=== PATIENT | female | born 1965 | race Caucasian/White ===

== ENCOUNTER 2020-01-01 07:20 | Inpatient (IN) | payer OTHER ==
[~2020-01-01] VITALS: Ht 167.6 cm; Wt 123.6 kg
[~2020-01-01 07:20] MED LIST: ALBUAER3 IN; ALOG1TAB2 PO; AMLO10TA13 PO; ATOR80TA PO; CONJ.6252 PO; ENAL20TA8 PO; GABA800T97 PO; GLIM4TAB42 PO; HYDR-531 PO; INSDRIP SC; INSU1INJ19 SC; METF-372 PO; METO25TA5 PO; MICO2CRE49 VA; REPA2TAB8 PO
[2020-01-01] MEDS ORDERED: ACETAMINOPHEN IV 1000 MG/100ML (10MG/ML) IV ONE (07:45)
[2020-01-01] MEDS ORDERED: VANCOMYCIN 1GM/250ML 250 ML IV ONE (07:45)
[2020-01-01] MEDS ORDERED: PREGABALIN CAPSULE 75 MG CAP PO ONE (07:45)
[2020-01-01] MEDS ORDERED: CELECOXIB 100 MG CAP PO ONE (07:45)
[2020-01-01] MEDS ORDERED: MORPHINE SULF(PF) 0.5MG/ML 10ML VIAL ONE (07:46)
[2020-01-01] MEDS ORDERED: fentaNYL CITRATE 100 MCG/2 ML VL ONE ×2 (07:46→12:38)
[2020-01-01] MEDS ORDERED: SUCCINYLCHOLINE CHLORIDE 20 MG/ML 10ML VIAL IV ONE (07:46)
[2020-01-01] MEDS ORDERED: SODIUM CHLORIDE LOCK 10 ML ONE (07:47)
[2020-01-01] MEDS ORDERED: PROPOFOL 10 MG/ML 20 ML IV ONE ×2 (07:47→13:23)
[2020-01-01] MEDS ORDERED: EPINEPHrine HCL 1 MG/1 ML AMP ONE (07:47)
[2020-01-01] MEDS ORDERED: ONDANSETRON HCL 4 MG/2 ML VIAL ONE (07:47)
[2020-01-01] MEDS ORDERED: MIDAZOLAM HCL 1MG/1ML-2 ML VIAL ONE ×3 (07:47→12:05)
[2020-01-01] MEDS ORDERED: CELECOXIB 100 MG CAP ONE (07:56)
[2020-01-01] MEDS ORDERED: PREGABALIN CAPSULE 75 MG CAP ONE (07:56)
[2020-01-01] MEDS ORDERED: ACETAMINOPHEN IV 100 ML IV ONE (07:59)
[2020-01-01] MEDS ORDERED: TRANEXAMIC ACID 20 ML ONE (08:23)
[2020-01-01] MEDS ORDERED: BUPIVACAINE W/ EPINEPH 0.25% INJ 50ML MDV ONE (08:23)
[2020-01-01] MEDS ORDERED: KETOROLAC TROMETH 30 MG/ML 1ML VIAL ONE (08:25)
[2020-01-01] MEDS ORDERED: VANCOMYCIN HCL 1000 MG VL ONE ×2 (08:25)
[2020-01-01] MEDS ORDERED: fentaNYL CITRATE 10 ML ONE (08:29)
[2020-01-01] MEDS ORDERED: HYDROmorphone HCL 2 MG/ML VL ONE (08:29)
[2020-01-01] MEDS ORDERED: ROCURONIUM 10MG/ML 10ML VIAL IV ONE (08:44)
[2020-01-01] MEDS ORDERED: CLINDAMYCIN 900MG IV 50 ML IV ONE (08:58)
[2020-01-01] MEDS ORDERED: ACCU-CHEK COMFORT CURVE STRIP VI ONE (10:15)
[2020-01-01] MEDS ORDERED: fentaNYL CITRATE 100 MCG/2 ML VL IV PRN (10:15)
[2020-01-01] MEDS ORDERED: MORPHINE SULFATE 4 MG/ML SYR/VIAL IV PRN (10:15)
[2020-01-01] MEDS ORDERED: METOCLOPRAMIDE HCL 5MG/ml INJ 2ml VIAL IV PRN (10:15)
[2020-01-01] MEDS ORDERED: GLYCOPYRROLATE 0.2 MG/ML 1ML VIAL ONE (10:31)
[2020-01-01] MEDS ORDERED: NEOSTIGMINE 1 MG/ML INJ (10mg/10ML VIAL) ONE (10:31)
[2020-01-01] MEDS: LACTATED RINGER'S 1,000 ML IV SCH ×2 (11:06→21:06)
[2020-01-01] MEDS ORDERED: MORPHINE SULF INJ 2 MG/ML SYRINGE 1ML IV PRN (11:15)
[2020-01-01] MEDS ORDERED: NITROGLYCERIN 0.4 MG SL TAB SL PRN (11:15)
[2020-01-01] MEDS: HYDROmorphone HCL 2 MG/ML VL IV PRN ×5 (11:43→22:28)
[2020-01-01] MEDS ORDERED: KETAMINE HCL 10 ML ONE (12:38)
[2020-01-01 13:00] VITALS: BP 151/69
--- NOTE | 2020-01-01 13:02 | NUR ---
Pt Arrived on Unit Pt arrived on unit from PACU. Pt is a/ox4 with no s/s of distress or SOB. Pt is currently laying in bed with dressing and wound vac present to L knee. Elevated L knee on pillows and SCDs were applied. Pt is currently on 3l via NC PRN. Safety measures initiated with call light within reach, bed in lowest position and side rails up. Will continue to monitor for changes.
[2020-01-01 13:36] VITALS: BP 135/76
--- NOTE | 2020-01-01 14:58 | NUR ---
CPM Pt is set up on CPM. Tolerating treatment well. Will continue to monitor. Addendum: 01/01/20 at 1747 by KIMBERLY MAHAJAN RN RN CMP removed. Pt tolerated treatment well. Will continue to monitor.
--- NOTE | 2020-01-01 15:58 | NUR ---
Resuming Home Medications Pt is inquiring about resuming home medications. Paged CLIN NURSE SPEC Jatinder for possible orders of resuming home medications. Awaiting call back.
--- NOTE | 2020-01-01 16:01 | NUR ---
Ambulation Pt was able to ambulate to bedside commode without difficulty. Pt tolerated placing weight on L knee. Will continue to monitor and encourage ambulation.
[2020-01-01 17:00] VITALS: BP 124/61
--- NOTE | 2020-01-01 19:35 | NUR ---
Opening Shift Note Assumed care of patient, awake and alert. No S/S of distress/SOB or pain. Patient is S/P left knee arthroplasty, dressing to left knee dry and intact, wound vac in place. Instructed on POC and to call for assist PRN, will continue to monitor for changes Q1hr and PRN.
--- NOTE | 2020-01-01 20:00 | NUR ---
Patient refused CPM at this time, verbalizing she wants to rest for tonight and will try to use CPM in the morning. Patient able to ambulate to the toilet to void with moderate assistance. Care continued.
[2020-01-01 21:53] VITALS: BP 137/71
[2020-01-01] MEDS: VANCOMYCIN 1GM/250ML 250 ML IV SCH (21:58)
[2020-01-01] MEDS: DOCUSATE SOD 100 MG CAP PO SCH (22:00)
[2020-01-02] MEDS: HYDROmorphone HCL 2 MG/ML VL IV PRN ×3 (03:58→16:07)
[2020-01-02] MEDS: ONDANSETRON HCL 4 MG/2 ML VIAL IV PRN (04:19)
[2020-01-02 05:21] VITALS: BP 132/75
[2020-01-02 05:46] LABS: Basophils # (auto) 0 10 ^3/uL (0-0.2); Basophils % (auto) 0.3 % (0.0-2.0); Eosinophils # (auto) 0.1 10 ^3/uL (0-0.8); Eosinophils % (auto) 0.9 % (0.0-7.0); Hematocrit 35.7 % (36.0-46.0); Hemoglobin 11.5 g/dL (12.2-16.2); Lymphocytes # (auto) 0.7 10 ^3/uL (0.4-5.4); Lymphocytes % (auto) 8.1 % (10.0-50.0); Mean Corpuscular Hemoglobin 31.7 pg (28.0-32.0); Mean Corpuscular Hgb Conc. 32.2 g/dL (32.0-36.0); Mean Corpuscular Volume 98.4 fL (80.0-100.0); Monocytes # (auto) 1.1 10 ^3/uL (0-1.3); Monocytes % (auto) 11.5 % (0.0-12.0); Neutrophils # (auto) 7.2 10 ^3/uL (1.6-8.6); Neutrophils % (auto) 79.2 % (37.0-80.0); Platelet Count (auto) 277 10^3/uL (140-450); Red Blood Cells 3.63 10^6/uL (4.0-5.20); Red Cell Distribution Width 15.3 % (11.8-14.3); White Blood Cell 9.1 10^3/uL (4.4-10.8)
[2020-01-02 06:22] LABS: Calcium 8.7 mg/dL (8.5-10.1); Potassium 4.2 mmol/L (3.5-5.1)
[2020-01-02 06:28] LABS: Albumin 3.3 g/dL (3.4-5.0); BUN/Creatinine Ratio 19.1; Bilirubin, Total 0.6 mg/dL (0.2-1.0); Total Protein 6.3 g/dL (6.4-8.2)
[2020-01-02] MEDS: LACTATED RINGER'S 1,000 ML IV SCH ×2 (06:55→18:02)
--- NOTE | 2020-01-02 07:30 | NUR ---
Opening Shift Note Assuming care of patient at this time. Patient is awake and alert. Patient denies pain. Patient shows no signs or symptoms of distress or shortness of breath. Bed is locked and lowered with side rails up x2. Instructed patient on the plan of care for today and to call for assistance as needed. Call light within reach. Will continue to round hourly and as needed.
--- NOTE | 2020-01-02 07:30 | NUR ---
No significant change in patient status, dressing to left knee still dry and intact, attached to wound vac. All needs attended to. No complains at this time. Report given to oncoming RN.
[2020-01-02 09:00] VITALS: BP 132/64
[2020-01-02] MEDS: VANCOMYCIN 1GM/250ML 250 ML IV SCH ×2 (09:55→22:13)
[2020-01-02] MEDS: DOCUSATE SOD 100 MG CAP PO SCH ×2 (09:55→22:21)
[2020-01-02] MEDS: ENOXAPARIN SOD 40 MG/0.4 ML SYRINGE SC SCH (09:56)
--- NOTE | 2020-01-02 11:00 | NUR ---
Wound Vac With assistance from Elle winding machine operator, wound vac canister was changed. Canister was full of dark, red sanguineous drainage. Patient tolerated well.
[2020-01-02 13:00] VITALS: BP 137/68
[2020-01-02] MEDS ORDERED: amLODIPine BESYLATE 5 MG TAB PO ONE (16:00)
[2020-01-02] MEDS ORDERED: ALBUTEROL SULF 2.5 MG/0.5ML(0.5%) NEB SOLN NEB PRN (16:00)
[2020-01-02] MEDS ORDERED: DEXTROSE (50%) 50ML SYRG IV PRN (16:00)
[2020-01-02 16:53] VITALS: BP 156/73
[2020-01-02] MEDS: ACCU-CHEK COMFORT CURVE STRIP VI SCH ×2 (17:15→22:37)
[2020-01-02] MEDS: HYDROcodone-ACET 5/325MG TAB PO PRN (18:03)
[2020-01-02] MEDS: InsuLIN REG 1unit/0.01ml Soln (100units/ml) SC SCH ×2 (18:05→22:37)
--- NOTE | 2020-01-02 19:27 | NUR ---
Closing Shift Note Patient resting in bed. No distress noted. Report given. Will endorse [facility] to [facility] shift lead RN.
--- NOTE | 2020-01-02 19:30 | NUR ---
Opening Shift Note Assumed care of patient, awake and alert. A&Ox4. Patient sitting up in bed. No S/S of distress/SOB or pain. Dressing dry and intact, wound vac draining. Safety measures maintained by keeping the bed locked in lowest position, 2 side rails up, personal items and call light within reach. Instructed on POC and to call for assist PRN, will continue to monitor for changes Q1hr and PRN.
[2020-01-02 20:29] LABS: Urine Bacteria MOD /hpf (None Seen); Urine Blood Negative /uL (Negative); Urine Specific Gravity 1.009 (1.001-1.035); Urine WBC 2 /hpf (0 - 5)
[2020-01-02] MEDS: ATORVASTATIN 20 MG TAB PO SCH (22:20)
[2020-01-02] MEDS: GABAPENTIN 400 MG CAP PO SCH (22:20)
[2020-01-02] MEDS: METOPROLOL TARTRATE 25 MG TAB PO SCH (22:21)
[2020-01-02 23:30] VITALS: BP 141/87
[2020-01-03] MEDS: HYDROmorphone HCL 2 MG/ML VL IV PRN ×2 (00:37→12:29)
[2020-01-03] MEDS: LACTATED RINGER'S 1,000 ML IV SCH ×3 (03:06→23:06)
[2020-01-03 04:20] VITALS: BP 141/87
[2020-01-03 05:30] VITALS: BP 125/63
[2020-01-03 05:36] LABS: Basophils # (auto) 0 10 ^3/uL (0-0.2); Basophils % (auto) 0.3 % (0.0-2.0); Eosinophils # (auto) 0 10 ^3/uL (0-0.8); Eosinophils % (auto) 0.4 % (0.0-7.0); Lymphocytes # (auto) 1.1 10 ^3/uL (0.4-5.4); Lymphocytes % (auto) 9.7 % (10.0-50.0); Mean Corpuscular Hemoglobin 32.3 pg (28.0-32.0); Mean Corpuscular Hgb Conc. 33.4 g/dL (32.0-36.0); Mean Corpuscular Volume 96.7 fL (80.0-100.0); Monocytes # (auto) 1.2 10 ^3/uL (0-1.3); Monocytes % (auto) 11.1 % (0.0-12.0); Neutrophils # (auto) 8.7 10 ^3/uL (1.6-8.6); Neutrophils % (auto) 78.5 % (37.0-80.0); Nucleated Red Blood Cells % 0.1 %; Platelet Count (auto) 274 10^3/uL (140-450); Red Blood Cells 3.41 10^6/uL (4.0-5.20)
[2020-01-03 05:54] LABS: Potassium 3.9 mmol/L (3.5-5.1)
[2020-01-03 05:58] LABS: BUN/Creatinine Ratio 13.8
[2020-01-03] MEDS: GABAPENTIN 400 MG CAP PO SCH ×3 (06:35→21:55)
[2020-01-03] MEDS: InsuLIN REG 1unit/0.01ml Soln (100units/ml) SC SCH ×4 (06:37→21:47)
[2020-01-03] MEDS: ACCU-CHEK COMFORT CURVE STRIP VI SCH ×4 (06:46→21:47)
--- NOTE | 2020-01-03 07:15 | NUR ---
Opening shift note Assumed care patient AOx4. Patient complains of pain 5/10 to right knee s/p total knee arthroplasty on 01/01/2020. Patient does not want pain medication at this time. No s/s of distress noted at this time. Bed in low position, locked, call light within reach. Will continue care.
[2020-01-03 09:00] VITALS: BP 146/71
[2020-01-03] MEDS: ENOXAPARIN SOD 40 MG/0.4 ML SYRINGE SC SCH (09:42)
[2020-01-03] MEDS: ACETAMINOPHEN 325 MG TAB PO PRN ×2 (09:42→20:39)
[2020-01-03] MEDS: amLODIPine BESYLATE 5 MG TAB PO SCH (09:43)
[2020-01-03] MEDS: METOPROLOL TARTRATE 25 MG TAB PO SCH ×2 (09:44→21:56)
[2020-01-03] MEDS: VANCOMYCIN 1GM/250ML 250 ML IV SCH ×2 (09:44→21:57)
[2020-01-03] MEDS: DOCUSATE SOD 100 MG CAP PO SCH ×2 (09:44→21:56)
--- NOTE | 2020-01-03 11:00 | NUR ---
Respiratory note: PT ASSESSED FOR PRN MN TX. HR 120, RR 20, POX 95% ON RA, BS ARE DIMINISHED. NO SOB OR DISTRESS NOTED. PT WAS NOTIFY TO HAVE RN PAGED IF MN TX WAS NEEDED.
[2020-01-03 13:00] VITALS: BP 110/66
--- NOTE | 2020-01-03 13:00 | NUR ---
Physical therapy Patient ambulating with physical therapy with assistance of a walker. Patient tolerating ambulation.
--- NOTE | 2020-01-03 16:25 | NUR ---
D/C Planning Regarding social service consult for bedside commode and walker. Faxed clinical information to patient health plan [employer] who will assist with DME. Per Crystal with [facility], SG will deliver walker to bedside and bedside commode to home upon discharge day.
[2020-01-03 17:00] VITALS: BP 135/60
--- NOTE | 2020-01-03 17:00 | NUR ---
IV removal IV to right forearm DC'd with clean sterile technique after redness and irritation noted to site, catheter fully intact. Pressure dressing applied to site. Patient tolerated well. IV insertion IV access obtained, via clean sterile technique by inserting 22 gauge catheter at left forearm after 2 attempts. IV secured properly. No trauma to site. Patient tolerated well.
--- NOTE | 2020-01-03 18:59 | NUR ---
RT NOTE PT WAS SEEN BY RT FOR PRN HHN TX ASSESSMENT. PT STATES NO TREATMENT NEEDED AT THIS TIME. HR 126, RR 20, BS CLEAR/DIM, POX 93% ON ROOM AIR AND APPEARS TO TOLERATE WELL. CONT ORDERED Addendum: 01/03/20 at 1917 by Maura Brower RT Amended: Links added.
--- NOTE | 2020-01-03 19:30 | NUR ---
Opening Shift Note Assumed care of patient, awake and alert. A&Ox4. Patient laying prone in bed. No S/S of distress/SOB or pain. Safety measures maintained by keeping the bed locked in lowest position, personal items and call light within reach. Wound vac draining. Instructed on POC and to call for assist PRN, will continue to monitor for changes Q1hr and PRN.
[2020-01-03] MEDS: ATORVASTATIN 20 MG TAB PO SCH (21:56)
[2020-01-03 22:01] VITALS: BP 134/64
[2020-01-04 05:15] VITALS: BP 127/67
[2020-01-04 05:58] LABS: Basophils # (auto) 0 10 ^3/uL (0-0.2); Basophils % (auto) 0.4 % (0.0-2.0); Eosinophils # (auto) 0.1 10 ^3/uL (0-0.8); Eosinophils % (auto) 0.5 % (0.0-7.0); Hematocrit 32.8 % (36.0-46.0); Hemoglobin 10.9 g/dL (12.2-16.2); Lymphocytes # (auto) 1.1 10 ^3/uL (0.4-5.4); Lymphocytes % (auto) 10.6 % (10.0-50.0); Mean Corpuscular Hemoglobin 32.2 pg (28.0-32.0); Mean Corpuscular Hgb Conc. 33.2 g/dL (32.0-36.0); Mean Corpuscular Volume 96.8 fL (80.0-100.0); Monocytes # (auto) 1.1 10 ^3/uL (0-1.3); Monocytes % (auto) 10.4 % (0.0-12.0); Neutrophils # (auto) 7.9 10 ^3/uL (1.6-8.6); Neutrophils % (auto) 78.1 % (37.0-80.0); Nucleated Red Blood Cells % 0.1 %; Platelet Count (auto) 265 10^3/uL (140-450); Red Blood Cells 3.39 10^6/uL (4.0-5.20); Red Cell Distribution Width 14.9 % (11.8-14.3); White Blood Cell 10.2 10^3/uL (4.4-10.8)
[2020-01-04 06:17] LABS: Albumin 2.4 g/dL (3.4-5.0); Calcium 8.6 mg/dL (8.5-10.1); Potassium 3.8 mmol/L (3.5-5.1)
[2020-01-04 06:21] LABS: BUN/Creatinine Ratio 14.7; Bilirubin, Total 0.9 mg/dL (0.2-1.0); Total Protein 6.4 g/dL (6.4-8.2)
[2020-01-04] MEDS: GABAPENTIN 400 MG CAP PO SCH ×3 (06:37→21:01)
[2020-01-04] MEDS: HYDROmorphone HCL 2 MG/ML VL IV PRN ×3 (06:38→23:20)
[2020-01-04] MEDS: ACCU-CHEK COMFORT CURVE STRIP VI SCH ×4 (06:49→21:25)
[2020-01-04] MEDS: InsuLIN REG 1unit/0.01ml Soln (100units/ml) SC SCH ×4 (06:49→22:15)
[2020-01-04 08:10] VITALS: BP 128/61
[2020-01-04 09:00] VITALS: BP 128/61
[2020-01-04] MEDS: LACTATED RINGER'S 1,000 ML IV SCH ×2 (09:06→13:06)
--- NOTE | 2020-01-04 09:38 | NUR ---
Dr. Herrera came over. MD is aware of patient's elevated temperature. Follow up with Physical Therapy. Patient sleeps most of the time.
--- NOTE | 2020-01-04 11:13 | NUR ---
Nutrition Assessment Notes Please refer to link for full assessment notes. Est Energy needs: 0740-3020 kcals (12-15 kcal/kgBW) Est Protein needs: 118-148 gms/day (2.0-2.5 gm/kgIBW) d/t pt adiposity Will continue to monitor and reassess prn. Addendum: 01/04/20 at [address] Amended: Links added.
[2020-01-04] MEDS: ENOXAPARIN SOD 40 MG/0.4 ML SYRINGE SC SCH (11:15)
[2020-01-04] MEDS: VANCOMYCIN 1GM/250ML 250 ML IV SCH (11:15)
[2020-01-04] MEDS: ACETAMINOPHEN 325 MG TAB PO PRN ×2 (11:20→21:00)
[2020-01-04] MEDS: DOCUSATE SOD 100 MG CAP PO SCH ×2 (11:20→21:01)
[2020-01-04] MEDS: amLODIPine BESYLATE 5 MG TAB PO SCH (11:20)
--- NOTE | 2020-01-04 11:20 | NUR ---
Temp = 101.2F. Tylenol PO given as ordered.
[2020-01-04] MEDS: METOPROLOL TARTRATE 25 MG TAB PO SCH ×2 (11:21→20:13)
--- NOTE | 2020-01-04 12:26 | NUR ---
Temp = 100.9 F. Ice pack given.
[2020-01-04 13:00] VITALS: BP 108/53
--- NOTE | 2020-01-04 13:47 | NUR ---
assessment Patient is a 54 year old female who is alert and oriented. Patients cognitive abilities are intact. Prior to admission patient lived home alone and functioned independently. Patient informed me she is able to care for her own ADLs. Per patient she will return home to her prior living arrangements post discharge and her friend Dequan will transport her home. Patient informed me she was admitted for knee replacement. Patient has a fww for home use. Per patient [facility] already set her up with [facility] for PT with [place]. A bedside commode has been ordered. Patients PCP is Dr Mcleod. I informed patient she has a right to speak to a manager social media regarding all care. I informed patient she has a right to participate in any and all discharge planning. Patient does not have a POA and advanced directive. I have offered patient information on POA and advanced directives. I informed the patient the advantages and benefits of having an Advanced Directive. Patient verbalized understanding and agreed to discharge plan. Addendum: 01/04/20 at 1353 by Marie D EJESUS Amended: Links added.
--- NOTE | 2020-01-04 15:30 | NUR ---
Patient had a bowel movement. Large, soft yellow stools noted on the bedside commode. Assisted the patient back to bed. Cleaned the bedside commode.
[2020-01-04] MEDS: HYDROcodone-ACET 5/325MG TAB PO PRN (16:58)
[2020-01-04 17:00] VITALS: BP 137/56
--- NOTE | 2020-01-04 18:20 | NUR ---
Patient wet the bed. Cleaned the patient, changed the gown, linen, chucks for comfort.
--- NOTE | 2020-01-04 19:52 | NUR ---
Opening Shift Note Assumed care of patient, awake and alert. No S/S of distress/SOB or pain. Instructed on POC and to call for assist PRN, will continue to monitor for changes Q1hr and PRN.Left knee dressing dry and intact, with small pocket drain in placed.
--- NOTE | 2020-01-04 20:18 | NUR ---
Called/pageIshaan Brumfield N.p. called re:heart rate is high 169,174,173 . Waiting for call back. Continue care.
[2020-01-04] MEDS: ATORVASTATIN 20 MG TAB PO SCH (21:01)
[2020-01-04] MEDS ORDERED: dilTIAZem 25 MG/5 ML VIAL IV ONE (21:15)
[2020-01-04] MEDS ORDERED: SODIUM CHLORIDE 0.9% 500 ML IV ONE (21:15)
--- NOTE | 2020-01-04 21:15 | NUR ---
returned call Ishaan Tompkins returned call, updated on patient status and reason for call, orders received of N.S.500 cc x one, and Diltiazem 10mg.i.v.p. x one if heart rate did not go down. Continue care.
[2020-01-04 22:00] VITALS: BP 105/77
--- NOTE | 2020-01-04 23:20 | NUR ---
Given a lot of ice chips to sucks on ,cooling measure.
--- NOTE | 2020-01-04 23:30 | NUR ---
IV insertion IV access obtained, via clean sterile technique by inserting 22 gauge catheter at left hand after attempt. IV secured properly. No trauma to site. Patient tolerated procedure well.
[2020-01-05] VITALS (7 sets, daily range): BP systolic 113–149; BP diastolic 63–79
--- NOTE | 2020-01-05 01:05 | NUR ---
returned call Ishaan Tompkins returned call, updated on patient status and reason for call heart rate is still above 130-140- orders received of labetalol 10mg.i.v.p. x one Continue care.
[2020-01-05] MEDS ORDERED: LABETALOL HCL 5 MG/ML 4ML SYRINGE IV ONE (01:15)
--- NOTE | 2020-01-05 02:43 | NUR ---
Called/paged Ishaan Tompkins called re:heart rate still high 168, 167,sinus tach. . Waiting for call back. Continue care.
[2020-01-05] MEDS ORDERED: dilTIAZem 125mg/125ml BAG KIT 100 ML IV SCH (03:06)
--- NOTE | 2020-01-05 03:10 | NUR ---
returned call Ishaan Torres returned call, updated on patient status and reason for call, said he will check the chart. Continue care.
--- NOTE | 2020-01-05 03:12 | NUR ---
Heart rate going down to 108, 107.
[2020-01-05] MEDS ORDERED: SODIUM CHLORIDE 0.9% 500 ML IV ONE (03:15)
[2020-01-05] MEDS ORDERED: SODIUM CHLORIDE 0.9% 1,000 ML IV SCH (03:15)
--- NOTE | 2020-01-05 03:20 | NUR ---
Called Ishaan Tompkins for the heart rate is good now 108, 111, 109, and said do the i.v.fluid 85cc/hour and the bolus of 500cc x one except the diltiazem drip.
[2020-01-05] MEDS ORDERED: levoFLOXacin 500MG 100 ML IV SCH (04:00)
[2020-01-05] MEDS: GABAPENTIN 400 MG CAP PO SCH ×3 (05:17→21:12)
[2020-01-05] MEDS: HYDROmorphone HCL 2 MG/ML VL IV PRN ×3 (05:27→20:53)
[2020-01-05] MEDS: ACCU-CHEK COMFORT CURVE STRIP VI SCH ×4 (06:26→21:41)
[2020-01-05] MEDS: InsuLIN REG 1unit/0.01ml Soln (100units/ml) SC SCH ×4 (06:27→21:42)
[2020-01-05 06:29] LABS: Basophils # (auto) 0 10 ^3/uL (0-0.2); Basophils % (auto) 0.4 % (0.0-2.0); Eosinophils # (auto) 0.1 10 ^3/uL (0-0.8); Eosinophils % (auto) 0.7 % (0.0-7.0); Hematocrit 30.9 % (36.0-46.0); Hemoglobin 10.1 g/dL (12.2-16.2); Lymphocytes # (auto) 0.9 10 ^3/uL (0.4-5.4); Lymphocytes % (auto) 8.9 % (10.0-50.0); Mean Corpuscular Hemoglobin 31.5 pg (28.0-32.0); Mean Corpuscular Hgb Conc. 32.5 g/dL (32.0-36.0); Mean Corpuscular Volume 96.8 fL (80.0-100.0); Monocytes % (auto) 9.5 % (0.0-12.0); Neutrophils # (auto) 8.1 10 ^3/uL (1.6-8.6); Neutrophils % (auto) 80.5 % (37.0-80.0); Platelet Count (auto) 310 10^3/uL (140-450); Red Blood Cells 3.19 10^6/uL (4.0-5.20); Red Cell Distribution Width 14.9 % (11.8-14.3)
[2020-01-05 06:46] LABS: Lactic Acid w/Reflex 2.1 mmol/L (0.4-2.0)
[2020-01-05 06:50] LABS: Albumin 2.5 g/dL (3.4-5.0); Calcium 8.4 mg/dL (8.5-10.1); Potassium 3.6 mmol/L (3.5-5.1)
[2020-01-05 06:53] LABS: Bilirubin, Total 0.8 mg/dL (0.2-1.0); Total Protein 6.8 g/dL (6.4-8.2)
--- NOTE | 2020-01-05 07:15 | NUR ---
Care report given to Ysabel Piedra, patient is resting no distress.
--- NOTE | 2020-01-05 07:30 | NUR ---
Opening Shift Note Assumed care of patient, awake, alert, and oriented. No S/S of distress/SOB or pain. Bed in lowest/locked position, bed rails up x2, call light within reach. Wound vac to left knee. Instructed on POC and to call for assist PRN. Will continue to monitor for changes Q1hr and PRN.
--- NOTE | 2020-01-05 08:15 | NUR ---
PT. ASSESSED FOR PRN. MN. TX., NO RESP. DISTRESS OR SOB NOTED AT THIS TIME. PT. IS EATING BREAKFAST AND DOESN'T WANT A TX. AT THIS TIME. ED=510,RR=20, SP02 93% ON 3LPM. NO TX. GIVEN, INSTRUCTED PT. TO CALL IF NEEDED.
--- NOTE | 2020-01-05 08:30 | NUR ---
TEMP PATIENT TEMP 101.5. MEDICATED PER MD ORDERS. WILL CONTINUE TO MONITOR
[2020-01-05] MEDS: DOCUSATE SOD 100 MG CAP PO SCH ×2 (08:39→21:11)
[2020-01-05] MEDS: ENOXAPARIN SOD 40 MG/0.4 ML SYRINGE SC SCH (08:40)
[2020-01-05] MEDS: METOPROLOL TARTRATE 25 MG TAB PO SCH ×2 (08:41→21:13)
[2020-01-05] MEDS: ACETAMINOPHEN 325 MG TAB PO PRN ×2 (08:41→16:44)
[2020-01-05] MEDS: amLODIPine BESYLATE 5 MG TAB PO SCH (08:42)
--- NOTE | 2020-01-05 09:40 | NUR ---
TEMP REASSESSMENT REASSESSED TEMP 100.5. COOLING MEASURES PLACED. WILL CONTINUE TO MONITOR
--- NOTE | 2020-01-05 09:47 | NUR ---
re-assessment Per consult dc planning. Patient to return home on discharge. Bedside commode and fww has been delivered. Home health has been set up by [facility] with [facility]. Addendum: 01/05/20 at 0950 by Marie Soto Amended: Links added.
--- NOTE | 2020-01-05 11:05 | NUR ---
MD ROUNDS DR OGLESBY AT BEDSIDE DISCUSSING POC WITH PATIENT. NEW ORDERS RECEIVED/WILL CARRY OUT. WILL CONTINUE TO MONITOR
--- NOTE | 2020-01-05 11:42 | NUR ---
LAB URINE SENT TO LAB PER MD ORDERS
--- NOTE | 2020-01-05 12:20 | NUR ---
MD ROUNDS DR WORKMAN AT BEDSIDE DISCUSSING POC WITH PATIENT. NEW ORDERS RECEIVED/WILL CARRY OUT. WILL CONTINUE TO MONITOR
[2020-01-05 12:45] LABS: Urine Bacteria FEW /hpf (None Seen); Urine Blood Negative /uL (Negative); Urine Mucus FEW (None Seen); Urine Specific Gravity 1.022 (1.001-1.035); Urine WBC 14 /hpf (0 - 5)
[2020-01-05] MEDS ORDERED: levoFLOXacin 250 MG TAB PO ONE (14:45)
[2020-01-05] MEDS ORDERED: FUROSEMIDE 40 MG/4 ML VIAL IV ONE (14:45)
--- NOTE | 2020-01-05 20:00 | NUR ---
Opening Shift Note Assumed care of patient, awake and alert. No S/S of distress/SOB or pain. Instructed on POC and to call for assist PRN, will continue to monitor for changes Q1hr and PRN.Dressing in the left knee dry white Gauze covered with Opsite dry and intact.
[2020-01-05] MEDS: ATORVASTATIN 20 MG TAB PO SCH (21:12)
--- NOTE | 2020-01-05 21:35 | NUR ---
Cooling measures done, and ice chips to sucks on.
[2020-01-06] MEDS: HYDROcodone-ACET 5/325MG TAB PO PRN ×5 (00:44→22:41)
[2020-01-06] MEDS: HYDROmorphone HCL 2 MG/ML VL IV PRN ×4 (01:19→16:11)
[2020-01-06] MEDS: ACETAMINOPHEN 325 MG TAB PO PRN (03:58)
[2020-01-06 04:37] VITALS: BP 127/59
[2020-01-06 05:40] LABS: Hematocrit 28.8 % (36.0-46.0); Hemoglobin 9.5 g/dL (12.2-16.2); Mean Corpuscular Hemoglobin 31.9 pg (28.0-32.0); Mean Corpuscular Hgb Conc. 33.1 g/dL (32.0-36.0); Mean Corpuscular Volume 96.5 fL (80.0-100.0); Platelet Count (auto) 322 10^3/uL (140-450); Red Blood Cells 2.99 10^6/uL (4.0-5.20); Red Cell Distribution Width 14.6 % (11.8-14.3); White Blood Cell 8.4 10^3/uL (4.4-10.8)
[2020-01-06] MEDS: GABAPENTIN 400 MG CAP PO SCH (05:45)
[2020-01-06 05:58] LABS: BUN/Creatinine Ratio 11.3; Calcium 8.2 mg/dL (8.5-10.1); Magnesium 2.2 mg/dL (1.6-2.6); Potassium 3.6 mmol/L (3.5-5.1)
[2020-01-06 06:02] LABS: Band Neutrophils % (manual) 0; Basophils % (manual) 0 (0.0-2.0); Blast Cells 0; Eosinophils % (manual) 0 (0-7); Myelocytes % 0; Promyelocytes % 0; Reactive Lymphocytes 0
[2020-01-06] MEDS: ACCU-CHEK COMFORT CURVE STRIP VI SCH ×4 (06:29→21:33)
[2020-01-06] MEDS: InsuLIN REG 1unit/0.01ml Soln (100units/ml) SC SCH ×4 (06:31→21:44)
--- NOTE | 2020-01-06 07:17 | NUR ---
Report given to Ysabel Hernandez, patient is resting no distress, dressing dry and intact in the left knee.
--- NOTE | 2020-01-06 07:21 | NUR ---
Opening Shift Note Assumed care of patient, awake, alert, and oriented. No S/S of distress/SOB or pain. Bed in lowest/locked position, bed rails up x2, call light within reach. Instructed on POC and to call for assist PRN. Will continue to monitor for changes Q1hr and PRN.
[2020-01-06] MEDS: levoFLOXacin 500 MG TAB PO SCH (07:45)
[2020-01-06] MEDS: ENOXAPARIN SOD 40 MG/0.4 ML SYRINGE SC SCH (07:45)
[2020-01-06] MEDS: METOPROLOL TARTRATE 25 MG TAB PO SCH ×2 (07:46→21:33)
[2020-01-06] MEDS: amLODIPine BESYLATE 5 MG TAB PO SCH (07:46)
[2020-01-06] MEDS: DOCUSATE SOD 100 MG CAP PO SCH ×2 (07:47→21:32)
--- NOTE | 2020-01-06 07:50 | NUR ---
PRN MN TX NOT INDICATED AT THIS TIME. PT IS AWAKE, ALERT AND ORIENTED. PT DENIES SOB OR ANY OTHER RESPIRATORY DISTRESS. PT ON 3L/MIN VIA NC 95% O2 SATS, HR 98 BPM, RR20 BPM, BS ARE BIBASILARLY DIMINISHED AND CLEAR TO THE UPPER AW TO AUSCULTATION. RESPIRATION IS EVEN AND NON LABORED. PT INSTRUCTED TO CALL IF MN TX IS INDICATED PT VERBALIZED UNDERSTANDING. WILL CONTINUE TO MONITOR PT.
--- NOTE | 2020-01-06 08:30 | NUR ---
MD ROUNDS DR OGLESBY AT BEDSIDE DISCUSSING POC WITH PATIENT. NEW ORDERS RECEIVED/WILL CARRY OUT. WILL CONTINUE TO MONITOR
[2020-01-06 09:00] VITALS: BP 127/66
--- NOTE | 2020-01-06 10:19 | NUR ---
IV insertion IV access obtained, via clean sterile technique by inserting 20 gauge catheter at RAC after 1 attempt. IV secured properly. No trauma to site. Patient tolerated well.
[2020-01-06 10:48] LABS: Lymphocytes % (manual) 9 (10.0-50.0); Metamyelocytes % 1; Monocytes % (manual) 17 (0-12)
[2020-01-06] MEDS ORDERED: IOHEXOL 350 MG/ML 100ML IJ ONE (11:07)
[2020-01-06 13:00] VITALS: BP 136/77
--- NOTE | 2020-01-06 13:46 | NUR ---
SHOWER PATIENT ASSISTED TO SHOWER WITH MODERATE ASSIST. PATIENT SHOWERED, FULL LINEN CHANGE. PATIENT ASSISTED BACK TO BED WITH MODERATE ASSIST. PATIENT TOLERATED WELL
[2020-01-06] MEDS: GABAPENTIN 100 MG CAP PO SCH ×2 (16:11→21:33)
[2020-01-06 16:45] VITALS: BP 129/67
[2020-01-06] MEDS: FUROSEMIDE 40 MG/4 ML VIAL IV SCH (17:39)
--- NOTE | 2020-01-06 19:48 | NUR ---
190. REPORT OBTAINED FROM OUTGOING LUISA MUELLER. 1909. PATIENT SEEN IN HER ROOM. USING THE BEDSIDE COMMODE. 0. PATIENT SEEN IN BED IN A SEMI-TIRADO POSITION. DENIED PAIN BUT EXPERIENCING SHORTNESS OF BREATHE. LUNGS ARE CLEAR. SHE IS AFEBRILE. O2 AT 2L BY NC. DENIEDPAIN. SINUS TACHYCARDIA ON THE MONITOR. DRESSING TO L KNEE INTACT. EDUCATION GIVEN REGARDING FREQUENT AMBULATION AND SITTING OUT OF BED.
[2020-01-06] MEDS: ATORVASTATIN 20 MG TAB PO SCH (21:32)
[2020-01-06 22:00] VITALS: BP 117/57
[2020-01-07] MEDS: HYDROmorphone HCL 2 MG/ML VL IV PRN ×4 (05:17→23:00)
[2020-01-07] MEDS: FUROSEMIDE 40 MG/4 ML VIAL IV SCH ×2 (05:35→18:23)
[2020-01-07] MEDS: GABAPENTIN 100 MG CAP PO SCH ×3 (05:35→21:09)
[2020-01-07 05:39] VITALS: BP 116/63
--- NOTE | 2020-01-07 06:04 | NUR ---
PT ASSESSED FOR PRN HHN TX. PT IS ON 3LNC, SPO2 94%, HR 107, RR 20. NO S/S OF RESPIRATORY DISTRESS. LUNGS ARE CLEAR. PRN TX NOT INDICATED AT THIS TIME. WILL CONTINUE TO MONITOR.
[2020-01-07] MEDS: ACCU-CHEK COMFORT CURVE STRIP VI SCH ×4 (06:32→21:09)
[2020-01-07] MEDS: InsuLIN REG 1unit/0.01ml Soln (100units/ml) SC SCH ×4 (06:34→21:26)
--- NOTE | 2020-01-07 06:58 | NUR ---
PATIENT HAD A QUIET NIGHT. HAD DILAUDID PAIN MEDICATION THIS MORNING AT 0517.
--- NOTE | 2020-01-07 07:10 | NUR ---
Opening Shift Note Assumed care of patient awake and alert. Updated patient on plan of care and assisted with ADLs. No S/S of distress/SOB or pain. Will continue to monitor for changes Q1hr and PRN. Bed locked in lowest position, HOB elevated at least 30 degrees, side rails up x 2 and call light is within reach.
[2020-01-07 07:17] LABS: Basophils # (auto) 0.1 10 ^3/uL (0-0.2); Basophils % (auto) 0.6 % (0.0-2.0); Eosinophils # (auto) 0.1 10 ^3/uL (0-0.8); Eosinophils % (auto) 1.4 % (0.0-7.0); Hemoglobin 9.9 g/dL (12.2-16.2); Lymphocytes # (auto) 0.9 10 ^3/uL (0.4-5.4); Lymphocytes % (auto) 9.7 % (10.0-50.0); Mean Corpuscular Hemoglobin 31.7 pg (28.0-32.0); Mean Corpuscular Hgb Conc. 32.9 g/dL (32.0-36.0); Mean Corpuscular Volume 96.4 fL (80.0-100.0); Monocytes % (auto) 10.9 % (0.0-12.0); Neutrophils # (auto) 6.9 10 ^3/uL (1.6-8.6); Neutrophils % (auto) 77.4 % (37.0-80.0); Nucleated Red Blood Cells % 0.2 %; Platelet Count (auto) 398 10^3/uL (140-450); Red Blood Cells 3.12 10^6/uL (4.0-5.20); Red Cell Distribution Width 14.7 % (11.8-14.3); White Blood Cell 8.9 10^3/uL (4.4-10.8)
[2020-01-07 07:24] LABS: BUN/Creatinine Ratio 9.8; Calcium 8.5 mg/dL (8.5-10.1); Magnesium 2.5 mg/dL (1.6-2.6); Phosphorus 2.3 mg/dL (2.5-4.90); Potassium 3.6 mmol/L (3.5-5.1)
[2020-01-07 08:00] VITALS: BP 138/81
[2020-01-07] MEDS: HYDROcodone-ACET 5/325MG TAB PO PRN ×2 (08:08→21:10)
[2020-01-07] MEDS ORDERED: SODIUM PHOSPHATES 20 MEQ in SODIUM CHL 0.9% 100 ML IV ONE ×2 (09:00→11:30)
[2020-01-07 09:11] VITALS: BP 138/81
--- NOTE | 2020-01-07 09:30 | NUR ---
MD ROUNDS MD ROUNDS WITH DR. OGLESBY. ORDERS OBTAINED AND VERIFIED. CONTINUE CARE
[2020-01-07] MEDS: levoFLOXacin 500 MG TAB PO SCH (09:39)
[2020-01-07] MEDS: METOPROLOL TARTRATE 25 MG TAB PO SCH ×2 (09:40→21:50)
[2020-01-07] MEDS: amLODIPine BESYLATE 5 MG TAB PO SCH (09:41)
[2020-01-07] MEDS: ENOXAPARIN SOD 40 MG/0.4 ML SYRINGE SC SCH (09:42)
[2020-01-07] MEDS: DOCUSATE SOD 100 MG CAP PO SCH ×2 (10:00→21:09)
[2020-01-07 12:48] VITALS: BP 138/81
[2020-01-07] MEDS: ONDANSETRON HCL 4 MG/2 ML VIAL IV PRN (14:16)
--- NOTE | 2020-01-07 15:00 | NUR ---
Called Dr. Blanc called regarding 02 saturation. Orders received and verified. Will continue to monitor.
--- NOTE | 2020-01-07 16:30 | NUR ---
Called Dr. Blanc called regarding ABG results. No new orders at this time. Will continue to monitor.
[2020-01-07 17:00] VITALS: BP 153/81
--- NOTE | 2020-01-07 18:39 | NUR ---
AT BEDSIDE TO ASSESS PT FOR PRN TX. TX NOT INDICATED AT THIS TIME. BS ARE CLEAR DIMINISHED T/O. RT NAME AND PAGER ASSIGNMENT WRITTEN ON PTS ROOM BOARD. PT AWARE I CAN BE PAGED AT ANY TIME SHE FEELS SOB OR HAVING ANY DIFFICULTY BREATHING. WILL CONTINUE TO MONITOR NEEDED.
--- NOTE | 2020-01-07 19:09 | NUR ---
CLOSING NOTE ENDORSED CARE TO NOC SHIFT RN
[2020-01-07] MEDS: ATORVASTATIN 20 MG TAB PO SCH (21:09)
[2020-01-07 22:00] VITALS: BP 117/68
[2020-01-08 05:21] VITALS: BP 100/66
[2020-01-08] MEDS: FUROSEMIDE 40 MG/4 ML VIAL IV SCH (05:55)
[2020-01-08] MEDS: GABAPENTIN 100 MG CAP PO SCH ×2 (05:55→13:22)
[2020-01-08] MEDS: ACCU-CHEK COMFORT CURVE STRIP VI SCH ×3 (05:55→17:22)
[2020-01-08] MEDS: HYDROcodone-ACET 5/325MG TAB PO PRN ×2 (05:56→11:35)
[2020-01-08] MEDS: InsuLIN REG 1unit/0.01ml Soln (100units/ml) SC SCH ×3 (06:15→17:23)
--- NOTE | 2020-01-08 07:05 | NUR ---
Opening Shift Note Assumed care of patient resting with eyes closed. Respirations even and unlabored. No S/S of distress/SOB or pain. Will continue to monitor for changes Q1hr and PRN. Bed locked in lowest position, HOB elevated at least 30 degrees, side rails up x 2 and call light is within reach.
[2020-01-08 08:21] VITALS: BP 132/73
[2020-01-08] MEDS: METOPROLOL TARTRATE 25 MG TAB PO SCH (09:04)
[2020-01-08] MEDS: amLODIPine BESYLATE 5 MG TAB PO SCH (09:05)
[2020-01-08] MEDS: levoFLOXacin 500 MG TAB PO SCH (09:05)
[2020-01-08] MEDS: ENOXAPARIN SOD 40 MG/0.4 ML SYRINGE SC SCH (09:06)
[2020-01-08] MEDS: DOCUSATE SOD 100 MG CAP PO SCH (09:15)
--- NOTE | 2020-01-08 09:15 | NUR ---
Pt REFUSED PT TX STATING SHE IS GOING HOME. Addendum: 01/08/20 at 0939 by Vignesh Johnson NEWS LIBRARY DIRECTOR Amended: Links added.
--- NOTE | 2020-01-08 11:08 | NUR ---
Nutrition Followup Note Wt 123.6kg Pt was alert and oriented at time of rounds. Pt reports appetite is good. Pt appetite is adequate aeb pt with an avg of 75% po intake x 2 days per RN note Est Energy needs: 4762-7768 kcals (12-15 kcal/kgBW) Est Protein needs: 118-148 gms/day (2.0-2.5 gm/kgIBW) d/t pt adiposity Will continue to monitor and reassess prn. Labs: GLUC 295H, Alb 2.5L BM: Pt with 2 BMs 01/07 per Rn note Skin: Bs 20 low risk, full details in director of patient care note PES: 1) Obesity r/t energy intake in excess of energy needs aeb 221% IBW and BMI of 46.5 kg/m2 2) Altered nutrition relatad lab values r/t current/chronic medical condition aeb hyperglycemia, elev A1c, hypoalbuminemia Comments Will continue to monitor PO status, skin status, pertinent labs and weight trends. Will f/u in 3-5 days. 1) Continue to closely monitor pt PO intake to meet at least 75% of meals 2) Refer pt to RD/CDE for nutrition education upon D/C 3) Continue current plan of care Expected Outcomes/Goals: Pt appetite to improve Pt labs to improve Pt to see a RD/CDE after D/C
[2020-01-08 11:27] VITALS: BP 132/73
--- NOTE | 2020-01-08 12:55 | NUR ---
MD ROUNDS MD ROUNDS WITH DR. STERLING. ORDERS RECEIVED AND VERIFIED. WILL CONTINUE TO MONITOR. Addendum: 01/08/20 at 1256 by SUZY ORTIZ RN RN TIME WAS 1030 NOT 1256
[2020-01-08 13:00] VITALS: BP 118/68
--- NOTE | 2020-01-08 14:40 | NUR ---
Spoke with Padmini HDZ at [facility] [phone] and stated the O2 for the patient will be delivered to the hospital at 1700, by [employer] [phone], Called the nurse Trent and made him aware.
[2020-01-08 15:33] VITALS: BP 118/68
[2020-01-08 16:03] VITALS: BP 118/72
--- NOTE | 2020-01-08 17:30 | NUR ---
Discharge instructions given as ordered. Encourage to follow up with PMD as instructed. All questions and concerns addressed. Patient verbalized understanding. Medication reconciliation form completed and copy given to patient. IV removed with catheter intact, pressure dressing applied. Patient discharged with home 02 2L. Telemetry unit returned to ICU. Patient taken to vehicle via wheelchair with all personal belongings, accompanied by staff and patient's friend. No distress noted at time of departure.
== END 2020-01-08 17:30 | disposition home or self-care (01) | DRG 469 ==
LOC: OVERFLOW 07:20 → TELE-CENTR 13:05 → EDSTATUS 14:00
PROVIDERS: ADMIT Orthopaedic Surgery; ATTEND Internal Medicine
PROC: 0SRD0JZ Replacement of Left Knee Joint with Synthetic Substitute, Open Approach (ICD-10-PCS; principal; 2020-01-01 08:39)
DX: M17.12 Unilateral primary osteoarthritis, left knee (principal); J96.01 Acute respiratory failure with hypoxia; Z68.41 Body mass index [BMI] 40.0-44.9, adult; N39.0 Urinary tract infection, site not specified; E11.9 Type 2 diabetes mellitus without complications; E66.01 Morbid (severe) obesity due to excess calories; E78.5 Hyperlipidemia, unspecified; G89.29 Other chronic pain; I10 Essential (primary) hypertension; M21.169 Varus deformity, not elsewhere classified, unspecified knee; Z60.2 Problems related to living alone; Z20.828 Contact with and (suspected) exposure to other viral communicable diseases
CPT/HCPCS: 36415; 36600; 71045; 71275; 73562; 80048; 80053; 80202; 81001; 82805; 82962; 83036; 83605; 83735; 83880; 84100; 84439; 84443; 84484; 85007; 85025; 85027; 86850; 86900; 86901; 87040; 87086; 93971; 94640; 97110; 97116; 97163; 97530; G0378; J0131; J0171; J0330; J1815; J1885; J1956; J2250; J2405; J2704; J3490